=== PATIENT | female | born 1990 | race Caucasian/White ===

== ENCOUNTER 2020-03-02 07:20 | Outpatient (CLI) | payer OTHER, SELFPAY ==
--- NOTE | ~2020-03-02 | CT_ITS ---
EXAMINATION: CT sinus wo con DATE: 03/02/2020 07:46 INDICATION: Chronic sinusitis TECHNIQUE: Computed tomography (CT) of the paranasal sinuses was performed without intravenous contra st. The dose-length product was 310.25 mGy-cm. COMPARISON: None FINDINGS: No significant mucosal thickening. No abnormal fluid in the sinuses. No nasal septal deviat ion. Ostiomeatal units are patent. Mastoids are pneumatized. IMPRESSION: 1. No significant sinus disease. Reviewed, dictated and finalized at location D. EDIENT HANDLER
== END 2020-03-02 07:21 | disposition home or self-care (01) ==
LOC: ANHIMG 07:27
PROVIDERS: PCP Family Medicine; Visit Provider Otolaryngology
DX: J32.9 Chronic sinusitis, unspecified (principal)
CPT/HCPCS: 70486

== ENCOUNTER 2022-05-29 10:17 | Outpatient (CLI) | payer OTHER, SELFPAY ==
--- NOTE | ~2022-05-29 | XR_ITS ---
Left Knee Technique: AP, lateral, and sunrise views were obtained. Clinical History: Myalgia Findings: No fracture or dislocation is seen. Osseous alignment is anatomic. Joint spaces are preserv ed without degenerative or erosive change. Soft tissues are unremarkable. No joint effusion is seen. Impression: Unremarkable left knee radiographs. Reviewed, dictated and finalized at location . CROP SUPERVISOR Impression: Unremarkable left knee radiographs.
--- NOTE | ~2022-05-29 | XR_ITS ---
Lumbosacral Spine: AP and lateral views Clinical History: Pain Findings: The normal lordotic curve is maintained. The vertebral bodies and posterior elements are i ntact. The intervertebral disc spaces are preserved. The sacroiliac joints are normally outlined. Impression: No significant abnormality. Reviewed, dictated and finalized at [facility]. HIC ILLUSTRATOR Impression: No significant abnormality.
--- NOTE | ~2022-05-29 | XR_ITS ---
Right Knee Technique: AP, lateral, and sunrise views were obtained. Clinical History: Myalgia Findings: No fracture or dislocation is seen. Osseous alignment is anatomic. Joint spaces are preserv ed without degenerative or erosive change. Soft tissues are unremarkable. No joint effusion is seen. Impression: Unremarkable right knee radiographs. Reviewed, dictated and finalized at location . SITTING Impression: Unremarkable right knee radiographs.
--- NOTE | ~2022-05-29 | XR_ITS ---
AP and oblique views of the SI joints CLINICAL HISTORY: Myalgia FINDINGS: SI joints are unremarkable. Visualized hip joints are unremarkable. No fracture or dislocat ion seen. Soft tissues are unremarkable. IMPRESSION: Unremarkable exam. Reviewed, dictated and finalized at location M. E SHARPENER IMPRESSION: Unremarkable exam.
--- NOTE | ~2022-05-29 | XR_ITS ---
Bilateral Hands Technique: Bilateral PA, oblique, and lateral views, and ball-catcher's view were obtained. Clinical History: Myalgia Findings: No acute fracture or dislocation is seen. Osseous alignment is anatomic. Joint spaces are p reserved. Soft tissues are unremarkable. Impression: Unremarkable bilateral hand radiographs. Reviewed, dictated and finalized at location . MAKER HELPER MACHINE Impression: Unremarkable bilateral hand radiographs.
[2022-05-29 11:25] LABS: Hematocrit 39.7 % (37.0-47.0); Hemoglobin 12.5 g/dL (12.0-15.0); Mean Corpuscular HGB Conc 31.5 g/dl (32-36); Mean Corpuscular Hemoglobin 28.1 pg (26-34); Mean Corpuscular Volume 89.2 fl (80-100); Mean Platelet Volume 9.9 fl (7.4-10.4); Platelet Count Result 335 k/mm3 (150-375); Red Blood Count 4.45 M/mm3 (4.2-5.4); Red Cell Distribution Width 13.6 % (11.5-14.5)
[2022-05-29 11:34] LABS: Creatine Kinase 58 U/L (30-135)
[2022-05-29 13:53] LABS: Vitamin D 25 Hydroxy 21.1 ng/mL
[2022-05-29 17:18] LABS: Rheumatoid Factor < 8.6 IU/ML (<12)
[2022-06-01 20:06] LABS: Angiotensin Converting Enzyme 43 U/L (9-67)
[2022-06-01 21:05] LABS: Anti Cyclic Citrullinated Pept <16 Units (<20)
== END 2022-05-29 10:18 | disposition home or self-care (01) ==
PROVIDERS: Visit Provider Internal Medicine
DX: M19.90 Unspecified osteoarthritis, unspecified site (principal); M79.7 Fibromyalgia; Z71.89 Other specified counseling; Z79.899 Other long term (current) drug therapy
CPT/HCPCS: 36415; 72100; 72202; 73130; 73562; 82164; 82306; 82550; 85027; 86038; 86200; 86430